=== PATIENT | male | born 1975 | race American Indian/Alaskan Native ===

== ENCOUNTER 2020-03-13 18:44 | Emergency (ER) | payer SELFPAY ==
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
== END 2020-03-14 02:00 ==
LOC: ED 18:44 → EDBD 18:44 → ED 03-14 02:00
DX: T14.8XXA Other injury of unspecified body region, initial encounter (principal); W34.09XA Accidental discharge from other specified firearms, initial encounter; I46.9 Cardiac arrest, cause unspecified; Y93.89 Activity, other specified; Y92.89 Other specified places as the place of occurrence of the external cause; Y99.8 Other external cause status
CPT/HCPCS: 31500